=== PATIENT | male | born 1950 | race American Indian/Alaskan Native ===

== ENCOUNTER 2018-07-07 19:57 | Emergency (ER) | payer MEDICARE, OTHER ==
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
--- NOTE | 2018-07-07 22:31 | XRay Report ---
PROCEDURE: XR SPINE CERVICAL 2-3V TECHNIQUE: Cevical spine, AP, lateral and odontoid view views. HISTORY: posterior neck pain COMPARISONS: None . FINDINGS: Prevertebral soft tissues: Normal . Alignment: Normal . Vertebral body heights/Disk spaces: The heights of the vertebral bodies are maintained. There is los s of disc space height at C5-6 and C6-7 levels. Moderate spur formation off the vertebral bodies from the C4 through the C7 vertebral levels as noted.. . Fracture(s): None . Facets: Normal . Bone mineralization: Normal . IMPRESSION: There is no evidence of acute fracture. Moderate cervical spondylosis and degenerative d isc changes as described. . This document is electronically signed by Dianna Barnett DO., July 07 2018 10:29:14 PM ET
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
[2018-07-08 00:47] VITALS: BP 114/68
== END 2018-07-08 00:49 | disposition home or self-care (01) ==
LOC: ED 19:57
DX: M50.30 Other cervical disc degeneration, unspecified cervical region (principal); V89.2XXA Person injured in unspecified motor-vehicle accident, traffic, initial encounter; Y93.89 Activity, other specified; Y92.488 Other paved roadways as the place of occurrence of the external cause; Y99.8 Other external cause status
CPT/HCPCS: 72040; 99283